=== PATIENT | male | born 1960 | race Caucasian/White ===

== ENCOUNTER 2020-02-28 14:13 | Emergency (ER) | payer SELFPAY ==
[2020-02-28 14:21] VITALS: BP 153/91
--- NOTE | 2020-02-28 14:26 | ER Document Report ---
HPI - HPI Patient complains to provider of: left hand and wrist pain Time Seen by Provider: 02/28/20 14:20 Onset: Last week Onset/Duration: Sudden, Persistent Pain Level: 1 Context: 59-year-old male presents with left wrist and hand pain. Reports he fell off skateboard last week. Reports pain since that time. Patient has ecchymosis to the volar aspect of his wrist and thenar area. He denies other symptoms such as fever vomiting diarrhea. Associated Symptoms: None Exacerbated by: Movement Relieved by: Denies Similar symptoms previously: No Recently seen / treated by doctor: No - MUSCULOSKELETAL Musculoskeletal: REPORTS: Extremity pain Past Medical History - General Information source: Patient - Social History Smoking Status: Former Smoker Chew tobacco use (# tins/day): No Frequency of alcohol use: None Drug Abuse: None Lives with: Family Family History: None Patient has suicidal ideation: No Patient has homicidal ideation: No - Medical History Medical History: Negative Surgical Hx: Negative Vertical Provider Document - CONSTITUTIONAL Agree With Documented VS: Yes Exam Limitations: No Limitations General Appearance: WD/WN, No Apparent Distress - HEENT HEENT: Atraumatic, Normocephalic - NECK Neck: Supple - RESPIRATORY Respiratory: No Respiratory Distress - CARDIOVASCULAR Cardiovascular: Regular Rate - MUSCULOSKELETAL/EXTREMETIES Musculoskeletal/Extremeties: MAEW, FROM, Tender, Eccymosis - Left wrist volar area left thenar area denies snuffbox tenderness cap refill less than 2 seconds radial pulse +3 - NEURO Level of Consciousness: Awake, Alert, Appropriate - DERM Integumentary: Warm, Dry Course - Re-evaluation Re-evalutation: 02/28/20 14:54 59-year-old male presents with left hand and wrist pain. Reports he fell off a skateboard. Patient has full range of motion complains of pain with pressure to the hand. No scaphoid tenderness. X-rays were negative. Patient was placed in a Bhavesh wrap instructed on ice elevated ibuprofen for pain return for concerns definitely follow-up with orthopedics for continued pain. He verbalized understanding to all instructions. Hand X-Ray 02/28/20 14:23 IMPRESSION: NEGATIVE STUDY OF THE LEFT HAND. NO RADIOGRAPHIC EVIDENCE OF ACUTE INJURY. Wrist X-Ray 02/28/20 14:23 IMPRESSION: NEGATIVE STUDY OF THE LEFT WRIST. NO RADIOGRAPHIC EVIDENCE OF ACUTE INJURY. - Vital Signs Vital signs: Temp Pulse Resp BP Pulse Ox 98.1 F 84 16 153/91 H 96 02/28/20 14:20 02/28/20 14:20 02/28/20 14:20 02/28/20 14:20 02/28/20 14:20 - Diagnostic Test Radiology reviewed: Image reviewed, Reports reviewed Procedures - Immobilization Left Hand Pre-Proc Neuro Vasc Exam: Normal Immobilizer type: Bhavesh wrap Performed by: PCT Post-Proc Neuro Vasc Exam: Unchanged from pre-exam Alignment checked and good: Yes Discharge - Discharge Clinical Impression: left wrist and hand pain Condition: Stable Disposition: HOME, SELF-CARE Instructions: Bhavesh Wrap ([facility]), Use of Lscz-Pfo-Kiuobzk Ibuprofen ([facility]), Ice & Elevation ([facility]) Additional Instructions: *You have been evaluated for left hand and wrist pain *Maintain the bhavesh wrap for comfort *Rest/Ice/Elevate your hand *Follow up with Dr Wagner within one week for referral to orthopedics as indicated *Take ibuprofen as indicated *Return to ED for worsening condition, changes, needs Referrals: TERRI PATTERSON MD [EMERITUS] - Follow up in 3-5 days
--- NOTE | 2020-02-28 14:48 | RADIOLOGY REPORT (SQ) ---
EXAM DESCRIPTION: HAND LEFT 3 VIEWS IMAGES COMPLETED DATE/TIME: 02/28/2020 2:31 pm REASON FOR STUDY: fall skateboarding COMPARISON: None. EXAM PARAMETERS: NUMBER OF VIEWS: Three views. TECHNIQUE: AP, lateral and oblique radiographic images acquired of the left hand. LIMITATIONS: None. FINDINGS: MINERALIZATION: Normal. BONES: No acute fracture or dislocation. No worrisome bone lesions. Mild degenerative changes at th e distal 2nd interphalangeal joint. JOINTS: No effusions. SOFT TISSUES: No soft tissue swelling. No foreign body. OTHER: No other significant finding. IMPRESSION: NEGATIVE STUDY OF THE LEFT HAND. NO RADIOGRAPHIC EVIDENCE OF ACUTE INJURY. TECHNICAL DOCUMENTATION: JOB ID: [id number] 2010 [employer]- All Rights Reserved Reading location - IP/workstation name: [email or web address]
--- NOTE | 2020-02-28 14:49 | RADIOLOGY REPORT (SQ) ---
EXAM DESCRIPTION: WRIST LEFT 3 VIEWS IMAGES COMPLETED DATE/TIME: 02/28/2020 2:31 pm REASON FOR STUDY: fall while skateboarding COMPARISON: None. NUMBER OF VIEWS: Three views. TECHNIQUE: AP, lateral, and oblique radiographic images acquired of the left wrist. LIMITATIONS: None. FINDINGS: MINERALIZATION: Normal. BONES: No acute fracture or dislocation. No worrisome bone lesions. Normal alignment. Mild degener ative changes at the 1st carpometacarpal joint. SOFT TISSUES: No soft tissue swelling. No foreign body. OTHER: No other significant finding. IMPRESSION: NEGATIVE STUDY OF THE LEFT WRIST. NO RADIOGRAPHIC EVIDENCE OF ACUTE INJURY. TECHNICAL DOCUMENTATION: JOB ID: [id number] 2010 [employer]- All Rights Reserved Reading location - IP/workstation name: [email or web address]
== END 2020-02-28 15:11 | disposition home or self-care (01) ==
LOC: ER 14:13
DX: M79.642 Pain in left hand (principal); M25.532 Pain in left wrist; V00.131A Fall from skateboard, initial encounter
CPT/HCPCS: 99283

== ENCOUNTER 2020-04-03 08:08 | Emergency (ER) | payer SELFPAY ==
--- NOTE | 2020-04-03 08:45 | ER Document Report ---
ED Extremity Problem, Upper - General Chief Complaint: Elbow Injury Stated Complaint: ELBOW INJURY Time Seen by Provider: 04/03/20 08:41 Notes: CHIEF COMPLAINT: Left elbow injury a month ago HPI: 59-year-old [id number] male presenting for left elbow discomfort over the last month. Patient had a fall on a skateboard with his granddaughter a month ago injured the left hand and thumb initially and states he came in and had those x-rayed and they were fine but has noticed continued discomfort in the left elbow with an inability to completely straighten the left arm at the elbow secondary to pain. 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 Denies any further problems with the hand or thumb, has not followed up with orthopedics ROS: See HPI - all other systems were reviewed and are otherwise negative Constitutional: no fever Integumentary: no rash Allergy: no hives Musculoskeletal: Positive extremity pain or swelling Neurological: no numbness/tingling MEDICATIONS: I agree with the patient medications as charted by the RN. ALLERGIES: I agree with the allergies as charted by the RN. PAST MEDICAL HISTORY/PAST SURGICAL HISTORY: Reviewed and agree as charted by RN. SOCIAL HISTORY: Reviewed and agree as charted by RN. FAMILY HISTORY: No significant familial comorbid conditions directly related to patient complaint EXAM: Reviewed vital signs as charted by RN. CONSTITUTIONAL: Alert and oriented and responds appropriately to questions. Well-appearing; well-nourished HEAD: Normocephalic; atraumatic EYES: PERRL; Conjunctivae clear, sclerae non-icteric ENT: normal nose; no rhinorrhea; moist mucous membranes NECK: Supple without meningismus CARD: symmetric distal pulses RESP: Normal chest excursion without splinting or tachypnea ABD/GI: non-distended. BACK: The back appears normal EXT: Very slightly limited extension of the left arm at the elbow, patient is able to comfortably straighten the arm to approximately 160 degrees at the elbow. Mild tenderness over the radial head and lateral condyle on palpation and range of motion. No visible bruising. There is a scar that is well-healed over the olecranon region. Radial and ulnar pulses are present in the left wrist. Sensation intact in the fingertips with capillary refill less than 3 seconds. Strength equal 5/5 bilateral upper extremities SKIN: Normal color for age and race; warm; dry; good turgor; no acute lesions noted NEURO: Moves all extremities equally; Motor and sensory function intact PSYCH: The patient's mood and manner are appropriate. Grooming and personal hygiene are appropriate. MDM: 59-year-old male with injury to the left elbow 1 month ago. Will obtain x- ray to evaluate for fracture, may be tendon injury, if x-ray negative for an acute injury will refer to orthopedics for further evaluation and management - Related Data Allergies/Adverse Reactions: No Known Allergies Allergy (Unverified 02/28/20 14:23) Past Medical History - Social History Smoking Status: Unknown if Ever Smoked Family History: None Physical Exam - Vital signs Vitals: Temp Pulse Resp BP Pulse Ox 98.2 F 72 16 169/94 H 98 04/03/20 08:13 04/03/20 08:13 04/03/20 08:13 04/03/20 08:13 04/03/20 08:13 Course - Re-evaluation Re-evalutation: 04/03/20 09:14 I reviewed the patient's x-rays I suspect he likely had a radial head fracture a month ago given the irregularity on the radial head, he now indicates that over the last month as he has tried to supinate and pronate the forearm he has had significant discomfort in the elbow over the radial head region. At this point time there is nothing further to be done other than refer patient to orthopedics for follow-up and possible physical therapy 04/03/20 09:33 Radiology believes there is also possibly old radial head fracture from irregularity over the radial head, will refer to orthopedics. Discussed at length with the patient - Vital Signs Vital signs: Temp Pulse Resp BP Pulse Ox 98.2 F 72 16 169/94 H 98 04/03/20 08:47 04/03/20 08:13 04/03/20 08:13 04/03/20 08:13 04/03/20 08:13 Discharge - Discharge Clinical Impression: Radial head fracture, closed Qualifiers: Encounter type: subsequent encounter Fracture alignment: nondisplaced Laterality: left Fracture healing: with routine healing Qualified Code(s): S52.125D - Nondisplaced fracture of head of left radius, subsequent encounter for closed fracture with routine healing Condition: Stable Disposition: HOME, SELF-CARE Instructions: Radial Head Fracture ([facility]) Additional Instructions: Follow-up closely with orthopedics for further evaluation and treatment, there is some concern you may have had a radial head fracture in the elbow. You may need physical therapy referral. Call the orthopedic office to obtain appointme nt Prescriptions: Diclofenac Sodium [Voltaren 50 Mg Tablet.] 50 mg PO BID #20 tablet. Referrals: TERRI PATTERSON MD [Primary Care Provider] - Follow up as needed LACI RIDER JR, DO [ACTIVE PROVISIONAL STAFF] - Follow up as needed
--- NOTE | 2020-04-03 09:29 | RADIOLOGY REPORT (SQ) ---
EXAM DESCRIPTION: ELBOW LEFT OVER 2 VIEWS IMAGES COMPLETED DATE/TIME: 04/03/2020 9:02 am REASON FOR STUDY: pain COMPARISON: None. NUMBER OF VIEWS: Four view. TECHNIQUE: AP, lateral, and both oblique radiographic images acquired of the left elbow. LIMITATIONS: None. FINDINGS: MINERALIZATION: Normal. BONES: Very subtle irregularity of the radial head is demonstrated in several projections. Nondispla ana fracture cannot be excluded. No significant osteophytes. JOINT: Anterior fat pad sign is noted. No posterior fat pad sign is identified. SOFT TISSUES: No soft tissue swelling. No foreign body. OTHER: No other significant finding. IMPRESSION: Slight irregularity of the radial head. Nondisplaced fracture cannot be excluded. Ther e is an anterior fat pad sign which can be normal. No evidence of posterior fat pad sign. TECHNICAL DOCUMENTATION: JOB ID: [id number] 2010 [employer]- All Rights Reserved. Reading location - IP/workstation name: [email or web address]
[2020-04-03 09:48] VITALS: BP 175/105
== END 2020-04-03 09:48 | disposition home or self-care (01) ==
LOC: ER 08:08
DX: S52.125D Nondisplaced fracture of head of left radius, subsequent encounter for closed fracture with routine healing (principal); V00.131D Fall from skateboard, subsequent encounter
CPT/HCPCS: 99283